=== PATIENT | female | born 1960 | race Caucasian/White ===

== ENCOUNTER 2023-06-28 08:44 | Outpatient (OUT) | payer OTHER, SELFPAY ==
--- NOTE | 2023-06-28 08:47 | VEIN_ITS ---
Patient Name: FLETCHER BOURGEOIS MR#: [id number] : 1960 Exam Date: 06/28/2023 Ordering Doctor: SIMEON MIC[facility]IOLOG[facility] REPORT PROCEDURE: FACILITY [facility] [place] - OFFICE VISIT INITIAL COMPARISON: None. PROGRESS NOTES: 62-year-old female who presents with a 50 year history of lower extremity varicose veins. The patient has had multiple episodes of cellulitis with multiple hospitalizations and treatment with antibiotics. The patient has had 3 episodes open venous stasis ulcerations with a current healing venous stasis ulceration on the right lateral ankle. The patient describes the pain as burning aching and heaviness. The patient rates the pain as a 3 on a scale of 1-10. The patient's right leg hurts more than the left likely related to the ulceration. The patient's symptoms are exacerbated by prolonged sitting or standing. The patient's symptoms are partially relieved by rest, leg elevation and compression stockings which she has worn for decades. The patient has previously had treatments with intravenous laser ablation of the right great saphenous vein as well as injection sclerotherapy. The patient denies any signs and symptoms to suggest arterial ischemia. The patient describes a family history significant for varicose veins and heart disease and cancer in her mother. Type 2 diabetes and hypertension in her father. No illicit drug use. The patient has never smoked. The patient does not drink alcohol. . Past medical history significant for phlebitis, cellulitis, congestive heart failure, hypertension and ulcerative colitis. No history of deep venous thrombus or pulmonary embolus. See separate history and physical for medication list. Nursing notes were reviewed After history and physical exam I discussed at length the pathophysiology of venous hypertension and possible treatments, therapies and strategies available. We discussed at length the importance of elevating the lower extremities above the level of the heart, increased physical activity and compression stocking use. We discussed conservative therapy with compression stockings. We discussed surgical alternatives of ligation and stripping and microphlebectomy. We discussed intravenous laser ablation, micro foam chemical ablation and injection sclerotherapy at length. Risks benefits and alternatives were discussed with the patient's questions were answered Ultrasound venous reflux study performed the same day was discussed at length with the patient. The report demonstrates bilateral small saphenous and bilateral anterior accessory saphenous and left great saphenous vein venous insufficiency with dilatation and saphenofemoral/saphenopopliteal junction reflux. Bilateral incompetent perforating veins. Bilateral incompetent varicose veins. PHYSICAL EXAM: The right leg demonstrates extensive hemosiderin staining. Moderate subcutaneous edema below the knee. 3 cm healing venous stasis ulceration right lateral ankle. Extensive varicose reticular and spider veins The left leg demonstrates extensive hemosiderin staining. Moderate subcutaneous edema below the knee. No serration. Extensive varicose reticular and spider veins Both thighs, legs and feet were symmetrically warm to the touch. Good posterior tibial and dorsalis pedis pulses were present bilaterally. [facility]IN[facility] Facility NEW Comprehensive IMPRESSION: 1. Left great saphenous vein, bilateral small saphenous vein, bilateral anterior accessory saphenous vein and bilateral incompetent perforating veins venous insufficiency 2. Bilateral lower extremity varicose veins 3. Bilateral lower extremity subcutaneous edema 4. No definite flow significant arterial disease 5. CEAP: C6, Ep, Asp, Pr PLAN: 1. Endovenous laser ablation left great saphenous vein followed by bilateral small saphenous vein followed by bilateral anterior accessory saphenous veins: Blood bilateral incompetent perforating veins 2. Injection sclerotherapy bilateral incompetent varicose vein 3. Micro foam chemical ablation bilateral reticular and spider veins 4. Long-term use of bilateral thigh-high or knee high 20-30 mm compression stockings 5. Continued physical activity for symptomatic relief Nurse notes, history and physical were reviewed and confirmed, see attached forms. The nurse was present throughout the physical exam and consultation Dictated by: Alfredo Vital MD on 06/28/2023 at 11:37 Approved by: Alfredo Vital MD on 06/28/2023 at 11:43
--- NOTE | 2023-06-28 08:47 | VEIN_ITS ---
Patient Name: FLETCHER BOURGEOIS MR#: [id number] : 1960 Exam Date: 06/28/2023 Ordering Doctor: SIMEON MICHEL RADIOLOGY REPORT PROCEDURE: VC EXT VENOUS REFLUX ILANA LMTD COMPARISON: None. INDICATIONS: Venous stasis ulcer Z87.2 TECHNIQUE: Duplex imaging of the lower extremity to assess the deep and superficial venous system for the presence of deep or superficial venous incompetence and to document the location and severity of disease. The study includes evaluation of the great saphenous vein (GSV), anterior accessory saphenous vein (AASV) and small saphenous vein (SSV). Patient scanned in reverse Trendelenburg and standing. FINDINGS: RIGHT LOWER EXTREMITY: Saphenofemoral Junction Reflux: Yes 1.7mm 1.6 sec GSV: Diam (mm) Reflux/ Time (sec) Proximal Thigh N/A Mid Thigh N/A Distal Thigh N/A Prox Calf N/A Mid Calf 4.9 Yes 1.5 Saphenopopliteal Junction Reflux: 6.2mm Yes 3.6 SSV: Proximal Calf 6.6 Yes 3.0 Mid Calf 5.0 Yes 1.0 AASV: Proximal Thigh 12.1 Yes 2.5 Mid Thigh 5.5 Yes 1.2 Distal Thigh Thrombi: No acute or chronic thrombus. Compressibility: Normal. Flow: Severe deep venous reflux. Preforator: Mid medial calf off SSV 7.3 mm with 2.4s reflux. Dist/medial lower leg/ankle 4.1 mm with 4.0s reflux. Prox/medial lower leg 4.5 mm with 2.2s reflux. Tech Note: GSV previously treated. Incompetent varicose vein distal lateral thigh measures 7.2 mm with 3.9s reflux. Varicose vein mid anterior thigh measures 9.9 mm with 1.2s reflux. Varicose vein proximal thigh off of AASV measures 10.2mm with 1.1s reflux. Distal medial lower leg varicose vein measures 5.5 mm with 1.9s reflux. LEFT LOWER EXTREMITY: Saphenofemoral Junction Reflux: Yes 18.4 mm 2.2 sec GSV: Diam (mm) Reflux/Time (sec) Proximal Thigh 9.6 Yes 3.2 Mid Thigh 7.4 Yes 1.3 Distal Thigh 8.0 Yes 2.2 Prox Calf 8.3 Yes 1.7 Mid Calf 7.5 Yes 1.2 Saphenopopliteal Junction Relux: 5.5 mm Yes 1.3 SSV: Proximal Calf 5.7 Yes 2.2 Mid Calf 6.0 Yes 1.2 AASV: Proximal Thigh 12.3 Yes 2.9 Mid Thigh 5.5 Yes 1.1 Distal Thigh Thrombi: Small area of thrombus in varicose vein mid calf off SSV. Compressibility: Non compressible segment of varicose vein. Flow: Mild deep venous reflux. [employer]: Distal medial lower leg 5.9 mm with 1.2s reflux. Mid medial lower leg 7.1mm with 1.5s reflux. Tech Note: Incompetent varicose vein mid medial thigh off GSV measures 10.7mm with 1.8s reflux. Distal medial thigh varicose vein off GSV 6.6 mm with 2.4s reflux. Varicose vein mid medial lower leg measures 7.8 mm with 2.4s reflux. Varicose vein mid lateral lower leg measures 5.5 mm with 0.8s reflux. CONCLUSION: 1. Severe venous insufficiency of the right small saphenous vein and left great saphenous vein with associated saphenofemoral/saphenopopliteal reflux and dilatation. 2. Moderate bilateral anterior accessory saphenous vein and left small saphenous vein venous insufficiency with dilatation 3. Severe right and mild left deep vein reflux 4. Small segment of superficial vein thrombus in a varicose vein arising off the left small saphenous vein 5. Left leg incompetent perforating veins 6. Bilateral incompetent varicose veins measuring up to 10.7 mm in the left Dictated by: Alfredo Vital MD on 06/28/2023 at 10:33 Approved by: Alfredo Vital MD on 06/28/2023 at 10:36
== END 2023-06-28 08:45 | disposition home or self-care (01) ==
LOC: VC 08:44
PROVIDERS: PCP Nurse Practitioner Adult Health; Visit Provider Nurse Practitioner Adult Health
DX: I83.813 Varicose veins of bilateral lower extremities with pain (principal); Z87.2 Personal history of diseases of the skin and subcutaneous tissue; R60.0 Localized edema
CPT/HCPCS: 93970; G0463